=== PATIENT | male | born 1965 | race Caucasian/White ===

== ENCOUNTER 2022-08-30 06:36 | Day surgery (SDC) | payer OTHER ==
[2022-08-30] MEDS ORDERED: Lactated Ringers 1,000 ML IV SCH (07:00)
[2022-08-30] MEDS ORDERED: Propofol 200 MG/20 ML SDV ONE (07:18)
[2022-08-30] MEDS ORDERED: fentaNYL 100 MCG/2 ML SDV ONE (07:18)
[2022-08-30] MEDS ORDERED: Midazolam 1 MG/ML 2 ML SDV ONE (07:18)
== END 2022-08-30 09:21 | disposition home or self-care (01) ==
LOC: JP.SDS 06:36
PROVIDERS: ATTEND Student in an Organized Health Care Education/Training Program
DX: K58.9 Irritable bowel syndrome, unspecified (principal); K57.30 Diverticulosis of large intestine without perforation or abscess without bleeding; Z79.899 Other long term (current) drug therapy; Z91.030 Bee allergy status
CPT/HCPCS: 45380; J2250; J2704; J3010; J7120